=== PATIENT | male | born 1985 | race Two or more races ===

== ENCOUNTER → 2017-04-18 | Outpatient (CLI) | payer BC ==
--- NOTE | 2017-04-18 20:45 | REP ---
Clinical: Bilateral knee pain. Technique: AP, lateral, bilateral oblique and sunrise views of the right and left knee. Findings: The osseous structures and joint spaces are intact and normal for age. There is no evidence for acute fracture or dislocation. Small right suprapatellar joint effusion cannot be excluded and should be correlated clinically. Surrounding soft tissues are unremarkable. No subcutaneous emphysema or radiodense foreign body. Impression: Symmetric age appropriate knee radiograph series. Small right suprapatellar effusion cannot be excluded. Signed by Fabian Loja MD 04/18/2017 08:35 P
--- NOTE | 2017-04-18 20:49 | REP ---
Clinical: Ankle pain. Technique: AP, lateral, bilateral oblique views of the left ankle. Findings: Moderate soft tissue swelling noted. No acute fracture dislocation. Joint spaces and ankle mortise are intact. No subcutaneous emphysema or radiodense foreign body. Impression: Mild swelling. No fracture. Signed by Fabian Loja MD 04/18/2017 08:39 P
== END ==
LOC: M LRY 18:24
PROVIDERS: ATTEND Nurse Practitioner Family
DX: M25.561 Pain in right knee (principal); M25.562 Pain in left knee; M25.572 Pain in left ankle and joints of left foot

== ENCOUNTER → 2017-04-18 | Outpatient (REF) | payer BC ==
[2017-04-18 20:31] LABS: BASO % 0.5 % (0.0-1.0); EOS # 0.2 10^3/uL (0.0-0.50); EOS % 2.2 % (0.0-3.0); IMMATURE GRANULOCYTE % 0.7 % (0-0); LYMPH # 1.5 10^3/uL (1.5-4.5); LYMPH % 19.4 % (24.0-44.0); MEAN CORPUSCULAR HEMOGLOBIN 28.3 pg (27.0-33.0); MEAN CORPUSCULAR HGB CONC 33.6 g/dl (32.0-36.5); MEAN CORPUSCULAR VOLUME 84.4 fl (80.0-96.0); MONO # 0.8 10^3/uL (0.0-0.8); MONO % 10.1 % (0.0-5.0); NEUTROPHILS # 5.1 10^3/uL (1.8-7.7); NEUTROPHILS % 67.1 % (36.0-66.0); PLATELET COUNT, AUTOMATED 453 10^3/uL (150-450); RED CELL DISTRIBUTION WIDTH 12.1 % (11.5-14.5); WHITE BLOOD COUNT 7.6 10^3/uL (4.0-10.0)
[2017-04-18 21:03] LABS: ALBUMIN 3.9 GM/DL (3.2-5.2); ALBUMIN/GLOBULIN RATIO 1.05 (1.00-1.93); ALKALINE PHOSPHATASE 87 U/L (45-117); ALT/SGPT 39 U/L (12-78); ANION GAP 6 MEQ/L (8-16); AST/SGOT 22 U/L (7-37); BILIRUBIN,TOTAL 0.8 MG/DL (0.2-1.0); BLOOD UREA NITROGEN 12 MG/DL (7-18); CALCIUM LEVEL 9.2 MG/DL (8.5-10.1); CARBON DIOXIDE LEVEL 33 MEQ/L (21-32); CHLORIDE LEVEL 98 MEQ/L (98-107); GLOMERULAR FILTRATION RATE > 60.0 (>60); GLUCOSE, FASTING 88 MG/DL (70-105); POTASSIUM SERUM 4.7 MEQ/L (3.5-5.1); SODIUM LEVEL 137 MEQ/L (136-145); TOTAL PROTEIN 7.6 GM/DL (6.4-8.2)
[2017-04-18 21:21] LABS: ERYTHROCYTE SEDIMENTATION RATE 36 mm/hr (0-15)
[2017-04-21 00:07] LABS: Lyme Disease IgG/IgM Antibodie <0.91 ISR (0.00-0.90); Lyme Disease IgM Ab Quantitati <0.80 index (0.00-0.79)
== END ==
LOC: M SFHCLERA 18:22
PROVIDERS: ATTEND Nurse Practitioner Family
DX: M25.561 Pain in right knee (principal)

== ENCOUNTER 2020-08-17 12:26 | Emergency (ER) | payer BC ==
[~2020-08-17] VITALS: Ht 167.6 cm; Wt 104.5 kg
[2020-08-17 12:32] VITALS: BP 139/86
== END 2020-08-17 13:14 | disposition home or self-care (01) ==
LOC: EDBD 12:26 → M ED 12:26
DX: S41.112A Laceration without foreign body of left upper arm, initial encounter (principal); Y99.0 Civilian activity done for income or pay; Y92.9 Unspecified place or not applicable; Y93.9 Activity, unspecified; Z88.4 Allergy status to anesthetic agent; R55 Syncope and collapse

== ENCOUNTER → 2020-08-28 | Outpatient (REF) | payer BC | LOC: M SFHCPLAZ 10:03 | PROVIDERS: ATTEND Family Medicine | DX: R03.0 Elevated blood-pressure reading, without diagnosis of hypertension (principal); Z13.220 Encounter for screening for lipoid disorders; Z13.1 Encounter for screening for diabetes mellitus ==